=== PATIENT | male | born 1985 ===

== ENCOUNTER 2022-05-24 19:56 | Emergency (ER) | payer OTHER ==
[2022-05-24 20:07] VITALS: RESP 18
[2022-05-24] MEDS ORDERED: ORPHENADRINE 30 MG/ML 2 ML VIAL IM STA ×2 (20:40→20:44)
--- NOTE | 2022-05-24 20:43 | ED ---
Lower Extremity Injury HPI - General Chief Complaint: Extremity Injury, Lower Stated Complaint: L leg injury Time Seen by Provider: 05/24/22 20:33 Source: patient, family, RN notes reviewed, old records reviewed Mode of arrival: ambulatory Limitations: no limitations - History of Present Illness Initial Comments: 36-year-old male presents ambulatory with complaints of left calf pain. Patient states that he was running during softball felt a pop in his calf. MD Complaint: leg injury -: hour(s) Injury: Leg: Left (calf) Type of Injury: other (running felt pop) Place: street/outdoors Improves With: immobilization Worsens With: palpation, other (walking) Context: other (running) Associated Symptoms: snap/pop sensation, able to partially bear weight Treatments Prior to Arrival: NSAIDS - Related Data Allergies Allergy/AdvReac Type Severity Reaction Status Date / Time No Known Allergies Allergy Verified 05/24/22 20:06 Review of Systems ROS Statement: Those systems with pertinent positive or pertinent negative responses have been documented in the HPI. ROS Other: All systems not noted in ROS Statement are negative. Past Medical History Past Medical History: No Reported History History of Any Multi-Drug Resistant Organisms: MRSA Date of last positivie culture/infection: 2015 MDRO Source:: Right armpit Past Surgical History: No Surgical Hx Reported Past Psychological History: No Psychological Hx Reported Smoking Status: Never smoker Past Alcohol Use History: Occasional Past Drug Use History: None Reported General Exam Limitations: no limitations General appearance: alert, in no apparent distress Respiratory exam: Absent: respiratory distress Cardiovascular Exam: Present: regular rate Left Lower Leg exam: Present: tenderness (calf). Absent: swelling, abrasion, laceration, ecchymosis, deformity, erythema, palpable cord, Homans' sign Ankle exam: Present: full ROM. Absent: tenderness Foot/Toe exam: Present: full ROM. Absent: tenderness Neurovascular tendon exam: Present: no vascular compromise. Absent: pulse deficit, abnormal cap refill, extremity cold to touch, pallor, foot drop (Achilles tendon intact) Gait: observed and limited by pain Neurological exam: Present: alert, oriented X3 Psychiatric exam: Present: normal affect, normal mood Skin exam: Present: warm, dry, normal color. Absent: cyanosis, diaphoretic Course Vital Signs 05/24/22 05/24/22 20:04 21:21 Temperature 99.1 F 97.8 F Pulse Rate 89 76 Respiratory 18 18 Rate Blood Pressure 138/91 115/76 O2 Sat by Pulse 96 95 Oximetry Medical Decision Making - Medical Decision Making 36 -year-old male presents with calf pain while running playing softball today, states felt a pop. Achilles tendon is intact. There is no significant swelling or deformity present. Dorsal pedal pulses are intact. Patient is able to ambulate. This is likely a muscle strain versus muscle tear. He did take Motrin prior to arrival and he was given Tylenol and Norflex here. He was directed to rest, avoid any physical activity, ice 20 minutes every 2 hours, and Cirilo wrap to the lower extremity. Elevate while at rest. Follow-up with orthopedics this week. Patient states he has seen Dr. Ayala in the past for shoulder injury. Case discussed with Dr. Avelar Disposition Clinical Impression: Strain of left calf muscle Disposition: HOME SELF-CARE Condition: Good Instructions (If sedation given, give patient instructions): Muscle Strain (ED) Additional Instructions: Rest and avoid running or physical activity that may further damage the calf muscle. Ice pack for 20 minutes every 2 hours. Wear Cirilo wrap for compression. Elevate while at home. Tylenol and/or Motrin as needed for pain. You can use topical creams like capsaicin, icy hot or BenGay Follow-up with the primary care doctor or orthopedics this week. Is patient prescribed a controlled substance at d/c from ED?: No Referrals: None,Stated [Primary Care Provider] - 1-2 days Sher Cain DO [Doctor of Osteopathic Medicine] - 1-2 days Time of Disposition: 21:00
[2022-05-24] MEDS ORDERED: ACETAMINOPHEN TAB 500 MG TAB PO STA (20:44)
[2022-05-24 21:22] VITALS: BP 115/76; PULSE 76; TEMP 97.8
== END 2022-05-24 21:22 | disposition home or self-care (01) ==
LOC: EC 19:56
DX: S86.912A Strain of unspecified muscle(s) and tendon(s) at lower leg level, left leg, initial encounter (principal); X50.0XXA Overexertion from strenuous movement or load, initial encounter; Y92.410 Unspecified street and highway as the place of occurrence of the external cause; Y93.64 Activity, baseball
CPT/HCPCS: 99283; 96372; J2360